=== PATIENT | female | born 1995 | race Caucasian/White ===

== ENCOUNTER 2020-03-18 13:42 | Emergency (ER) | payer OTHER, SELFPAY ==
[2020-03-18 14:00] VITALS: BP 123/66; PULSE 79; RESP 20; TEMP 37.2; O2SAT 99
--- NOTE | 2020-03-18 14:14 | ED.FEMALEGU ---
HPI - Female Genitourinary General Chief complaint: Urogenital-Female Stated complaint: lower back pain Time Seen by Provider: 03/18/20 14:06 Source: patient and RN notes reviewed Mode of arrival: ambulatory Limitations: no limitations History of Present Illness HPI Narrative: Patient presents today with a 3-day history of urinary frequency and malodorous urine, and states she is having left sided back pain since yesterday. Denies dysuria, abdominal pain, fever, urgency. She just got off her menstrual cycle a few days ago. States that very frequently when she gets off her menstrual cycle she gets a UTI, and wanted to come in for antibiotics. Denies injury of her back, radiation of the back pain, numbness or tingling of the extremities or genitalia, loss of bowel or bladder control. She has been taking cranberry pills. Currently rates her back pain 10/27. She has been taking ibuprofen without relief. Related Data Home Medications Medication Instructions Recorded Confirmed norgestimate-ethinyl estradiol 1 tablet PO DAILY 03/18/20 03/18/20 [Estarylla] Allergies Allergy/AdvReac Type Severity Reaction Status Date / Time No Known Allergies Allergy Mild Verified 03/18/20 14:00 Review of Systems Review of Systems: Narrative: CONSTITUTIONAL: Denies body aches, fever, chills, or sweats. EYES: Denies visual changes, redness, or discharge. ENT: Denies rhinorrhea, congestion, sore throat, or otalgia. CARDIOVASCULAR: Denies chest pain, palpitations, or edema. RESPIRATORY: Denies cough or dyspnea. GASTROINTESTINAL: Denies abdominal pain, nausea, vomiting, or diarrhea. GENITOURINARY: Denies dysuria or hematuria.+ Urinary frequency and malodorous urine SKIN: Denies rash, itching, or wounds. MUSCULOSKELETAL: Denies back pain, or myalgia. + Left sided back pain NEUROLOGIC: Denies headache, numbness, tingling, or weakness. PSYCH: Denies depression or anxiety. [facility] Social History Social History (Updated 04/20/19 @ 13:43 by JOHNSON Silva) Smoking status: Never smoker Alcohol intake: never Substance use: never Comments At time of signature, I have reviewed and agree with nursing past medical, surgical, social and family history unless otherwise noted. Please see nursing chart for further information. There is no relevant family history pertinent to the presenting complaint Exam Narrative: Exam Narrative: GENERAL: Well-appearing, well-nourished, and in no acute distress. HEAD: Normocephalic, atraumatic. EYES: EOMI. No redness or drainage. Conjunctivae normal. ENT: Mucous membranes pink and moist. NECK: Normal AROM. CHEST: No respiratory distress. ABDOMEN: Soft, nontender, nondistended, normal active bowel sounds.- CVAT. MUSCULOSKELETAL: No bony tenderness of the spine. Left sided lower thoracic and upper lumbar point tenderness of paraspinal muscles. No SI joint tenderness. No deformity or step-off. Distal sensation intact. Saddle sensation intact. Capillary refill normal. EXTREMITIES: Normal range of motion. No edema. SKIN: Warm, dry, no rash. Capillary refill normal. Normal skin turgor. NEURO: No focal deficits. Alert and oriented x3. Gait steady. PSYCH: Normal affect. No signs of depression or anxiety. Course Vital Signs Vital signs: Vital Signs Temperature 98.9 F 03/18/20 14:00 Pulse Rate 79 03/18/20 14:00 Respiratory Rate 20 03/18/20 14:00 Blood Pressure 123/66 03/18/20 14:00 Pulse Oximetry 99 03/18/20 14:00 Temperature 98.9 F 03/18/20 14:00 Pulse Rate 79 03/18/20 14:00 Respiratory Rate 20 03/18/20 14:00 Blood Pressure 123/66 03/18/20 14:00 Pulse Oximetry 99 03/18/20 14:00 Reviewed. Pt has been instructed to follow up with her PCP regarding her elevated blood pressure today. MDM - Female Genitourinary Differential Diagnosis Differential diagnosis: Likely urinary tract infection, vaginitis, cystitis and other (Pyelonephritis, kidney stone, muscle
== END 2020-03-18 14:23 | disposition home or self-care (01) ==
PROVIDERS: Emergency Provider Nurse Practitioner
DX: R35.0 Frequency of micturition (principal); M54.6 Pain in thoracic spine
CPT/HCPCS: 81003; 99213; G0463

== ENCOUNTER 2021-02-25 12:05 | Emergency (ER) | payer OTHER, SELFPAY ==
[2021-02-25 12:14] VITALS: BP 113/63; PULSE 87; RESP 16; TEMP 36.7; O2SAT 100
--- NOTE | 2021-02-25 12:36 | ED.GENADULT ---
HPI - General Adult General Chief complaint: Upper Respiratory Infection Stated complaint: sore throat Source: patient Mode of arrival: ambulatory Limitations: no limitations History of Present Illness HPI narrative: Patient is a 25-year-old female who presents to the [facility] via POV for evaluation of a sore throat that began 2 days ago. She reports her throat pain is constant and sharp in nature. She states her pain is 10 out of 10 on a pain scale. Additionally, she reports pressure in bilateral ears and rhinorrhea. Nothing improves symptoms. Denies known exposure or sick contacts. She states she is fully vaccinated against Covid. Related Data Allergies Allergy/AdvReac Type Severity Reaction Status Date / Time No Known Allergies Allergy Mild Verified 02/25/21 12:29 Review of Systems Review of Systems: Pertinent negatives: fever, chills, poor p.o. intake, myalgias, flu-like symptoms, ear pain/drainage, sinus trouble, headache, nasal congestion, lymphadenopathy, dizziness, LOC, inability to swallow, drooling, hoarseness, halitosis, abdominal pain, nausea, vomiting, diarrhea, cough, wheezing, sob, chest pain, heart murmurs, and heart palpations. [facility] Social History Social History Smoking status: Never smoker Alcohol intake: never Substance use: never Exam Narrative: GENERAL: Well-appearing, well-nourished, and in no acute distress. HEAD: Normocephalic, atraumatic. No sinus tenderness or facial swelling appreciated. EYES: PERRLA and EOMI. No evidence of erythema, swelling, or drainage. ENT: Bilateral external ears and ear canals normal. Bilateral TMs are normal.No TM perforation. Nares clear, no rhinorrhea or epistaxis. Bilateral turbinates without erythema/ swelling. Mucous membranes moist and pink. Uvula is midline without erythema and swelling. Moderate erythema and mild swelling noted to bilateral tonsils. No evidence of petechial rash, cobblestoning, lesions, ulcers, exudates, peritonsillar abscess, tenting, or drooling. Breath odor and voice normal. NECK: Supple. No Lymphadenopathy or nuchal rigidity appreciated. CHEST: Bilateral lung desai are clear to auscultation. No respiratory distress. No evidence of cough or pleuritic cp upon examination. HEART: Regular rate and rhythm. No murmur, gallop, or rub heard. EXTREMITIES: Normal range of motion. No edema. SKIN: Warm, dry, no rash. NEURO: No focal deficits. Alert and oriented x3. Course Vital Signs Vital signs: Vital Signs Temperature 98.0 F 02/25/21 12:14 Pulse Rate 87 02/25/21 12:14 Respiratory Rate 16 02/25/21 12:14 Blood Pressure 113/63 02/25/21 12:14 Pulse Oximetry 100 02/25/21 12:14 Temperature 98.0 F 02/25/21 12:14 Pulse Rate 87 02/25/21 12:14 Respiratory Rate 16 02/25/21 12:14 Blood Pressure 113/63 02/25/21 12:14 Pulse Oximetry 100 02/25/21 12:14 Reviewed Medical Decision Making Differential Diagnosis Differential Diagnosis: Allergic rhinitis, ABRS, acute viral sinusitis, strep pharyngitis, nasopharyngitis, bronchitis, pneumonia, AOM, otitis externa, viral URI, influenza Medical Records Medical records reviewed: Yes I reviewed the external patient's medical records. Vital Signs Vital Signs: Vital Signs Temperature 98.0 F 02/25/21 12:14 Pulse Rate 87 02/25/21 12:14 Respiratory Rate 16 02/25/21 12:14 Blood Pressure 113/63 02/25/21 12:14 Pulse Oximetry 100 02/25/21 12:14 Temperature 98.0 F 02/25/21 12:14 Pulse Rate 87 02/25/21 12:14 Respiratory Rate 16 02/25/21 12:14 Blood Pressure 113/63 02/25/21 12:14 Pulse Oximetry 100 02/25/21 12:14 Reviewed Lab Data Lab results reviewed: Yes I reviewed the patient's lab results. Lab results narrative: Rapid strep negative Labs: Strep Screen Presumptive Negative *(Reference Range: Negative)*
== END 2021-02-25 12:45 | disposition home or self-care (01) ==
PROVIDERS: Emergency Provider Nurse Practitioner Family
DX: J06.9 Acute upper respiratory infection, unspecified (principal)
CPT/HCPCS: 87081; 87880; 99213; G0463

== ENCOUNTER 2021-11-01 11:10 | Emergency (ER) | payer OTHER, SELFPAY ==
[2021-11-01 11:17] VITALS: BP 129/54; PULSE 74; RESP 16; TEMP 36.3; O2SAT 99
--- NOTE | 2021-11-01 11:30 | ED.URI ---
HPI - URI/Sore Throat General Chief Complaint: Upper Respiratory Infection Stated Complaint: cough Time Seen by Provider: 11/01/21 11:26 Source: patient and RN notes reviewed Mode of arrival: ambulatory Limitations: no limitations History of Present Illness HPI Narrative: 25-year-old female presented for complaint of sinus congestion, sore throat and productive cough for about 5 days. Endorses occasional coughing fits, feels short of breath and wheezing with these fits. denies nausea, vomiting, fevers or chills. She takes Jessica daily. She denies sick contacts. She is boosted for COVID and vaccinated for flu. MD elicited complaint: cough Related Data Home Medications Medication Instructions Recorded Confirmed albuterol sulfate 90 mcg/actuation 2 inh inhalation PRN PRN Shortness 11/01/21 11/01/21 aerosol inhaler Of Breath Or Wheezing lisdexamfetamine 30 mg capsule 1 cap PO DAILY 11/01/21 11/01/21 (Vyvanse) Allergies Allergy/AdvReac Type Severity Reaction Status Date / Time No Known Allergies Allergy Mild Verified 11/01/21 11:13 Review of Systems Review of Systems: CONSTITUTIONAL: denies malaise, chills, sweats, fever EYES: Denies visual changes, redness, or discharge ENT: Reports rhinorrhea, congestion, sore throat CARDIOVASCULAR: Denies chest pain, palpitations, edema RESPIRATORY: Reports cough, post nasal drainage NEUROLOGIC: Denies headache PMFSH Social History Social History Smoking status: Never smoker Alcohol intake: never Substance use: never Exam Narrative: GENERAL: well appearing EYES: conjunctivae clear ENT: Mucous membranes moist. TMs pearly bruce with normal light reflex bilaterally; no tragal tenderness. Oropharynx erythematous without lesions or exudate, no drooling, no hoarseness, no trismus, uvula midline. No tripod positioning, muffled voice, soft palate or pharyngeal wall bulging NECK: Supple. No lymphadenopathy CHEST: Clear to auscultation, breath sounds equal. No wheezing, rhonchi, rales, or stridor. No respiratory distress, speaks in full sentences. HEART: Regular rate and rhythm. No murmur heard. NEURO: Alert and oriented x3. Course Course Emergency Course: Patient is aware of diagnosis, understands and agrees to treatment plan. Anticipatory guidance given. Patient agrees to follow-up as directed and is aware of reasons to seek care at the emergency department. Portions of this record may have been created with voice recognition software Level of Care: Express Care Visit Vital Signs Vital signs: Vital Signs Temperature 97.3 F L 11/01/21 11:17 Pulse Rate 74 11/01/21 11:17 Respiratory Rate 16 11/01/21 11:17 Blood Pressure 129/54 L 11/01/21 11:17 Pulse Oximetry 99 11/01/21 11:17 Oxygen Delivery Room Air 11/01/21 11:17 Temperature 97.3 F L 11/01/21 11:17 Pulse Rate 74 11/01/21 11:17 Respiratory Rate 16 11/01/21 11:17 Blood Pressure 129/54 L 11/01/21 11:17 Pulse Oximetry 99 11/01/21 11:17 Oxygen Delivery Room Air 11/01/21 11:17 reviewed MDM - URI/Sore Throat MDM Narrative Medical decision making narrative: strep negative. Advised supportive treatment and follow-up with PCP. Differential Diagnosis Differential diagnosis: Likely upper respiratory infection, sinusitis and viral infection Discharge Plan Discharge Clinical Impression: Upper respiratory infection Qualifiers: URI type: unspecified URI Qualified Code(s): J06.9 - Acute upper respiratory infection, unspecified Patient Disposition: Home, Self-Care Condition: Stable Instructions: Antibiotic Form, Allergic Rhinitis (ED) Additional Instructions: Rapid strep swab was negative today You will be notified in a few days if the culture comes back positive for strep, and appropriate antibiotics will be called in at that time. if symptoms are due to a viral illness, it is not treated with antibi
== END 2021-11-01 11:40 | disposition home or self-care (01) ==
PROVIDERS: Emergency Provider Nurse Practitioner Family
DX: J06.9 Acute upper respiratory infection, unspecified (principal)
CPT/HCPCS: 87081; 87880; 99213; G0463

== ENCOUNTER 2023-12-13 09:29 | Emergency (ER) | payer OTHER, SELFPAY ==
--- NOTE | 2023-12-13 09:32 | ED.URI ---
HPI - URI/Sore Throat General Chief Complaint: Upper Respiratory Infection Stated Complaint: bodyaches,fever Time Seen by Provider: 12/13/23 09:32 Source: patient Mode of arrival: ambulatory Limitations: no limitations History of Present Illness HPI Narrative: Ana Luisa is a 28-year-old female who presents to the clinic today with complaints of nausea/vomiting, nasal congestion, and fever for 2 days. 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 She denies any constipation, cough, or shortness of breath. Last menstrual period was 2 weeks ago. Patient denies any concern for . Denies any blood in her stool. MD elicited complaint: fever and other (nausea/vomiting) Related Data Home Medications Medication Instructions Recorded Confirmed dextroamphetamine-amphetamine 30 30 mg PO DAILY 12/13/23 12/13/23 mg tablet Allergies Allergy/AdvReac Type Severity Reaction Status Date / Time No Known Allergies Allergy Mild Verified 12/13/23 09:31 Review of Systems Review of Systems: Pertinent positives per HPI. Patient denies any rash, headache, visual changes, dizziness, cough, shortness of breath, chest pain, palpitations, diarrhea, constipation, or any urinary issues. PMFSH Social History Social History Smoking status: Never smoker Alcohol intake: never Substance use: never Comments At the time of my signature, I reviewed and agree with the nursing past medical, surgical, social, and family history. There is no relevant family history pertinent to the patient complaint. Exam Narrative: General: Well-developed, well nourished, in no apparent distress Head: Normocephalic, atraumatic Eyes: Pupils equally round and reactive to light bilaterally, EOM intact, sclera and conjunctive clear, no discharge, lids normal Nose: Nares patent, no sinus tenderness. Mouth: Oral pharynx without lesions or masses, good dentition, MMM, lips dry. Neck: Supple, trachea midline Cardio: Regular rate and rhythm, s1 and s2 normal, no murmur appreciated. Resp: Clear to auscultation bilaterally, no rhonchi, rales, wheezing or rubs Abdomen: Normoactive bowel sounds, nontender to palpation Course Course Emergency Course: Portions of this record may have been created with voice recognition software. Level of Care: Express Care Visit Vital Signs Vital signs: Vital signs reviewed MDM - URI/Sore Throat MDM Narrative Medical decision making narrative: At the time of visit patient is resting comfortably on the exam table. Patient appears to be nontoxic. Labs: COVID and influenza testing was negative in the clinic today. Plan: I suspect patient has gastroenteritis. Prescription for Zofran and Levsin was sent to the pharmacy. Supportive measures were discussed with the patient and they voiced understanding discharge instructions and agrees to treatment plan. Return precautions reviewed Differential Diagnosis Differential diagnosis: Likely upper respiratory infection, otitis media, sinusitis, viral infection, bronchitis, influenza, pharyngitis and other (COVID) Discharge Plan Discharge Clinical Impression: Gastroenteritis Patient Disposition: Home, Self-Care Condition: Stable Instructions: Antibiotic Form, Gastroenteritis (ED) Additional Instructions: Take prescription medications only as prescribed-ondansetron and Levsin Increase fluids and stay well hydrated Tylenol/motrin for pain/fever Flonase and OTC antihistamines as directed Vicks vapor rub to open sinuses Sinus rinses for congestion Cepacol spray, cough drops, throat lozenges, warm tea with honey/lemon, gargle salt water to soothe throat BRAT diet for diarrhea Clear liquids x 24 hours then advance as tolerated for nausea/vomiting Go to the ED if you develop a worsening in your condition- high fever not control
[2023-12-13 09:43] VITALS: BP 117/64; PULSE 87; RESP 16; TEMP 36.6; O2SAT 100
[2023-12-13 10:06] LABS: EDINFLUASCREEN Negative; EDINFLUBSCREEN Negative
== END 2023-12-13 10:05 | disposition home or self-care (01) ==
PROVIDERS: Emergency Provider Nurse Practitioner Family
DX: K52.9 Noninfective gastroenteritis and colitis, unspecified (principal); Z20.822 Contact with and (suspected) exposure to COVID-19; F90.9 Attention-deficit hyperactivity disorder, unspecified type; E03.9 Hypothyroidism, unspecified; Z86.16 Personal history of COVID-19
CPT/HCPCS: 87426; 87804; 99213; G0463